=== PATIENT | male | born 1990 | race African-American/Black ===

== ENCOUNTER 2020-04-18 21:20 | Emergency (ER) | payer SELFPAY ==
--- NOTE | 2020-04-18 22:52 | ER Document Report ---
ED Medical Screen (RME) - General Chief Complaint: Ankle Pain Stated Complaint: RIGHT ANKLE PAIN, SWELLING Time Seen by Provider: 04/18/20 22:40 TRAVEL OUTSIDE OF THE [place] IN LAST 30 DAYS: No - HPI Notes: 04/18/20 22:51 29-year-old male with past medical history of IV drug abuse to the emergency department with complaints of right lower extremity swelling and pain that began 2 nights ago. He thought maybe he had "sprained his ankle in his sleep". However the swelling is gotten worse. He has some redness to the lower extremity as well. Denies any recent travel. Denies any history of blood clots . He is an IV drug user and last used heroin this morning at 10 AM. Denies any fevers or chills. He states he is not injecting into his leg. States he is only injecting into his arms. I performed a brief medical screening exam on the patient determined that the patient needs further evaluation and management by main side provider. I have placed initial orders to help expedite care. - Related Data Allergies/Adverse Reactions: No Known Allergies Allergy (Unverified 04/18/20 22:40) Physical Exam - Vital signs Vitals: Temp Pulse Resp BP Pulse Ox 98.9 F 76 16 143/68 H 97 04/18/20 21:30 04/18/20 21:30 04/18/20 21:30 04/18/20 21:30 04/18/20 21:30 Course - Vital Signs Vital signs: Temp Pulse Resp BP Pulse Ox 98.9 F 76 16 143/68 H 97 04/18/20 21:30 04/18/20 21:30 04/18/20 21:30 04/18/20 21:30 04/18/20 21:30
[2020-04-18 23:16] LABS: ABSOLUTE EOSINOPHILS # (AUTO) 0.2 10^3/uL (0.0-0.6); ABSOLUTE LYMPHOCYTES (AUTO) 1.6 10^3/uL (0.5-4.7); ABSOLUTE MONOCYTES (AUTO) 0.8 10^3/uL (0.1-1.4); ABSOLUTE NEUT (AUTO) 4.9 10^3/uL (1.7-8.2); BASOPHILS % (AUTO) 0.4 % (0-2); EOSINOPHILS % (AUTO) 2.4 % (0-6); HEMATOCRIT 37.8 % (37.9-51.0); LYMPHOCYTES % (AUTO) 21.4 % (13-45); MEAN CORPUSCULAR HEMOGLOBIN 29.4 pg (27.0-33.4); MEAN CORPUSCULAR HGB CONC 34.5 g/dL (32.0-36.0); MEAN CORPUSCULAR VOLUME 85 fl (80-97); MONOCYTES % (AUTO) 10.3 % (3-13); PLATELET COUNT 277 10^3/uL (150-450); RED BLOOD COUNT 4.43 10^6/uL (4.35-5.55); RED CELL DISTRIBUTION WIDTH 14.3 % (11.5-14.0); SEGMENTED NEUTROPHILS % (AUTO) 65.5 % (42-78); TOTAL CELLS COUNTED % (AUTO) 100 %; WHITE BLOOD COUNT 7.5 10^3/uL (4.0-10.5)
--- NOTE | 2020-04-18 23:35 | RADIOLOGY REPORT (SQ) ---
EXAM DESCRIPTION: XR TIBIA FIBULA 2 VIEWS COMPLETED DATE/TME: 04/18/2020 22:50 CLINICAL HISTORY: 29 years, Male, leg swelling, redness EXAM DESCRIPTION: CLINICAL HISTORY: leg swelling, redness COMPARISON: None FINDINGS: 3 view(s) submitted. No fracture or dislocation is identified. Bone marrow attenuation is unremarkable. No radiopaque foreign body is identified. IMPRESSION: No acute fracture or dislocation.
[2020-04-18 23:42] LABS: ALBUMIN 3.8 g/dL (3.5-5.0); ALKALINE PHOSPHATASE 68 U/L (38-126); ANION GAP 7 (5-19); ASPARTATE AMINO TRANSFERASE 25 U/L (17-59); BILIRUBIN,DIRECT 0.3 mg/dL (0.0-0.4); BILIRUBIN,TOTAL 0.4 mg/dL (0.2-1.3); BLOOD UREA NITROGEN 16 mg/dL (7-20); CALCIUM 9.2 mg/dL (8.4-10.2); CARBON DIOXIDE 33 mmol/L (22-30); CHLORIDE 99 mmol/L (98-107); GLUCOSE 84 mg/dL (75-110); POTASSIUM 5.1 mmol/L (3.6-5.0); TOTAL PROTEIN 6.9 g/dL (6.3-8.2)
--- NOTE | 2020-04-19 00:56 | ER Document Report ---
ED General - General Chief Complaint: Ankle Swelling Stated Complaint: RIGHT ANKLE PAIN, SWELLING Time Seen by Provider: 04/18/20 22:40 Primary Care Provider: [facility] [Provider Group] - Follow up as needed Mode of Arrival: Ambulatory Information source: Patient TRAVEL OUTSIDE OF THE [place] IN LAST 30 DAYS: No - HPI Notes: Patient is a 29-year-old male presents with right ankle pain that began 4 days ago. Patient states he woke up with ankle pain and was concerned he "sprained" it in his sleep. Patient reports his greatest pain is located to his medial and posterior ankle. He reports swelling but denies numbness, fever, chills, nausea, vomiting, shortness of breath, and chest pain. Denies any recent fall o r trauma. He is an IV drug user and reports using heroin earlier this morning. He reports injecting in his arms only and denies injecting in his legs or feet. Patient does not have a history of clots and denies any recent travel. - Related Data Allergies/Adverse Reactions: No Known Allergies Allergy (Unverified 04/18/20 22:40) Past Medical History - General Information source: Patient - Social History Smoking Status: Never Smoker Frequency of alcohol use: None Drug Abuse: Heroin Family History: None Patient has homicidal ideation: No - Past Medical History Cardiac Medical History: Denies: Hx DVT Review of Systems - Review of Systems Constitutional: No symptoms reported EENT: No symptoms reported Cardiovascular: No symptoms reported Respiratory: No symptoms reported Gastrointestinal: No symptoms reported Genitourinary: No symptoms reported Male Genitourinary: No symptoms reported Musculoskeletal: See HPI Skin: No symptoms reported Hematologic/Lymphatic: No symptoms reported Neurological/Psychological: No symptoms reported Physical Exam - Vital signs Vitals: Temp Pulse Resp BP Pulse Ox 98.9 F 76 16 143/68 H 97 04/18/20 21:30 04/18/20 21:30 04/18/20 21:30 04/18/20 21:30 04/18/20 21:30 - Notes Notes: PHYSICAL EXAMINATION: GENERAL: Non-toxic appearing male who appears to be stated age. Patient appears sleepy and is slow to answer. HEAD: Atraumatic, normocephalic. EYES: Pupils equal round and reactive to light, extraocular movements intact, sclera anicteric, conjunctiva are normal. ENT: nares patent, oropharynx clear without exudates. Moist mucous membranes. NECK: Normal range of motion, supple without lymphadenopathy LUNGS: Breath sounds clear to auscultation bilaterally and equal. No wheezes rales or rhonchi. HEART: Regular rate and rhythm without murmurs ABDOMEN: Soft, nontender, normoactive bowel sounds. No guarding, no rebound. No masses appreciated. EXTREMITIES: Right ankle ROM limited secondary to pain. Track judge noted to bilateral upper extremities. No track judge visualize on the feet or legs. No cyanosis. DP and PT pulses palpable bilaterally. No edema or erythema bilateral LE. NEUROLOGICAL: No focal neurological deficits. Moves all extremities spontaneously and on command. PSYCH: Normal mood, normal affect. SKIN: Warm, Dry, normal turgor, no rashes or lesions noted. Course - Re-evaluation Re-evalutation: Patient is a 29-year-old male with a history of IV drug abuse and presents with right ankle pain that began 4 days ago. On exam, range of motion of the right ankle is limited secondary to pain. No erythema or edema noted to right ankle or calf. X-ray of the right leg shows no acute fracture or dislocation. Based on exam and x-ray findings patient symptoms are consistent with a right ankle sprain. Patient will be discharged home in a ankle stirrup and Wilberto wrap, will be provided with crutches, and a prescription for naproxen. I discussed return precautions with the patient. - Vital Signs Vital signs: Temp Pulse Resp BP Pulse Ox 98.2 F 85 16 132/80 H 100 04/19/20 01:17 04/19/20 01:17 04/19/20 01:17 04/19/20 01:17 04/19/20 01:17 - Laboratory Result Diagrams: 04/18/20 23:00 04/18/20 23:00 Laboratory results interpreted by me: 04/18/20 04/18/20 23:00 23:00 Hgb 13.0 L Hct 37.8 L RDW 14.3 H Potassium 5.1 H Carbon Dioxide 33 H - Diagnostic Test Radiology reviewed: Image reviewed, Reports reviewed Radiology results interpreted by me: Tibia/Fibula X-Ray 04/18/20 22:50 IMPRESSION: No acute fracture or dislocation. Discharge - Discharge Clinical Impression: Ankle sprain Qualifiers: Encounter type: initial encounter Involved ligament of ankle: unspecified ligament Laterality: right Qualified Code(s): S93.401A - Sprain of unspecified ligament of right ankle, initial encounter Condition: Stable Disposition: HOME, SELF-CARE Additional Instructions: Sprained Ankle Your sprained ankle results from stretching or tearing of the ligaments which support the ankle. This usually results from twisting the foot inward and under. The ligaments will require time and protection in order to heal properly. Many ankle sprains are quite disabling, and should be taken seriously. The usual treatment for an ankle sprain is cold packs; protection with tape, splints, or wraps; elevation; and staying off the ankle for at least a day. As the ankle improves, you can walk IF it's not painful to bear weight. Sports are best postponed until healing is complete. More serious sprains usually require strengthening exercises after early healing. Your physician has assessed the seriousness of the ligament injury to your ankle. However, the treatment may change, depending on how your ankle progresses. If further exams were recommended, it is important that you follow through. Call the doctor if your foot becomes numb, painful, or severely swollen. Ankle Stirrup Splint You are to use an ankle brace called a stirrup splint. This type of brace allows you to place greater stresses on the ankle without risk of re-injury, and is often used for more severe ankle injuries such as avulsion fractures and ligament ruptures. The splint can be worn over a sock or tape. For proper support, wear the splint with a shoe over it. It's important that the splint fit properly. Adjust the heel tension, if needed. If your splint has air bladders, peel back the bottom of each air bladder, then move the Velcro attachment of the heel strap up or down. Air bladder pressure can be adjusted by pulling up the valve at the top, threading the air tube down into the main bladder, then blowing air into the bladder or squeezing it out. The two sides of the stirrup can be moved forward or back on your ankle by changing the attachment of the main straps. If you are unable to use the ankle comfortably in the splint, return for re-evaluation. Prescriptions: Naproxen 500 mg PO BID PRN 10 Days #20 tablet PRN Reason: Forms: Return to School Referrals: [facility] [Provider Group] - Follow up as needed
[2020-04-19 01:23] VITALS: BP 132/80
== END 2020-04-19 01:23 | disposition home or self-care (01) ==
LOC: ER 21:20
DX: S93.401A Sprain of unspecified ligament of right ankle, initial encounter (principal); M25.571 Pain in right ankle and joints of right foot; X58.XXXA Exposure to other specified factors, initial encounter
CPT/HCPCS: 36415; 80053; 83605; 85025; 87040; 99284